=== PATIENT | female | born 1980 | race Two or more races ===

== ENCOUNTER 2016-11-28 08:15 | Inpatient (IN) | payer SELFPAY ==
[~2016-11-28] VITALS: Ht 154.9 cm; Wt 103.0 kg
[2016-11-28] MEDS ORDERED: CARBOPROST TROMETHAMINE 250 MCG/1ML VIAL IM PRN (08:45)
[2016-11-28] MEDS ORDERED: DERMOPLAST 60ML BOTTLE TOP PRN (08:45)
[2016-11-28] MEDS ORDERED: WITCH HAZEL-GLYCERIN PAD TOP PRN (08:45)
[2016-11-28] MEDS ORDERED: NALBUPHINE HCL 10 MG/1ml INJECTION IV PRN (08:45)
[2016-11-28] MEDS ORDERED: LIDOCAINE 2%HCL (LOCAL ANESTH.) INJ 20ML MDV IJ ONE (08:45)
[2016-11-28] MEDS ORDERED: METHYLERGONOVINE MALEATE 0.2 MG/ML AMP IM PRN (08:45)
[2016-11-28] MEDS ORDERED: CLINDAMYCIN 900MG IV 50 ML IV SCH (09:00)
[2016-11-28] MEDS ORDERED: LACT. RINGERS/OXYTOCIN 20UNITS 1,000 ML IV SCH (09:09)
[2016-11-28 09:29] LABS: Basophils # (auto) 0.1 uL; Basophils % (auto) 1.2 % (0.0-2.0); Eosinophils # (auto) 0.1 uL; Eosinophils % (auto) 1.4 % (0.0-7.0); Hemoglobin 11.9 g/dL (12.2-16.2); Lymphocytes % (auto) 22.4 % (10.0-50.0); Mean Corpuscular Hemoglobin 30.4 pg (28.0-32.0); Mean Corpuscular Hgb Conc. 33.9 g/dL (32.0-36.0); Mean Corpuscular Volume 89.6 fL (80.0-100.0); Mean Platelet Volume 9.5 fL (7.4-10.4); Monocytes # (auto) 0.5 uL; Monocytes % (auto) 5.5 % (0.0-12.0); Neutrophils # (auto) 6.2 uL; Neutrophils % (auto) 69.5 % (37.0-80.0); Platelet Count (auto) 241 10^3/uL (140-450); Red Cell Distribution Width 15.7 % (11.6-16.0); White Blood Cell 8.9 10^3/uL (4.4-10.8)
[2016-11-28 09:41] LABS: Urine Bilirubin Negative (Negative); Urine Color Yellow (Yellow); Urine Glucose Normal (Normal); Urine Ketone Negative (Negative); Urine Mucus FEW (None Seen); Urine Nitrite Negative (Negative); Urine RBC 38 /hpf (0 - 4); Urine Squamous Epithelial Cell MANY /hpf (<5); Urine Urobilinogen Normal (Negative); Urine WBC Clumps PRESENT /hpf (None Seen)
[2016-11-28 09:48] LABS: Urine Blood 3+ /uL (Negative)
[2016-11-28 09:48] LABS: INR 0.91 (0.9-1.15); Prothrombin Time 9.8 sec (9.37-12.3)
[2016-11-28 10:33] LABS: Albumin 2.8 g/dL (3.4-5.0); BUN/Creatinine Ratio 15.4; Bilirubin, Total 0.2 mg/dL (0.2-1.0); Calcium 8.5 mg/dL (8.5-10.1); Potassium 3.9 mmol/L (3.5-5.1); Total Protein 7.1 g/dL (6.4-8.2); Uric Acid 4.9 mg/dL (2.6-6.0)
[2016-11-28] MEDS ORDERED: LACT. RINGERS/OXYTOCIN 20UNITS 500 ML IV ONE (12:31)
[2016-11-28] MEDS ORDERED: ACETAMINOPHEN 325 MG TAB PO PRN (12:45)
[2016-11-28 15:38] VITALS: BP 128/66
[2016-11-28] MEDS: IBUPROFEN 600 MG TAB PO PRN ×2 (15:45→19:20)
[2016-11-28 19:13] VITALS: BP 129/61
[2016-11-28] MEDS: LACTATED RINGER'S 1,000 ML IV SCH ×2 (21:39→21:59)
[2016-11-29] VITALS (7 sets, daily range): BP systolic 116–145; BP diastolic 61–82
[2016-11-29] MEDS: IBUPROFEN 600 MG TAB PO PRN ×2 (00:54→13:40)
[2016-11-30 03:30] VITALS: BP 124/71
[2016-11-30 08:24] VITALS: BP 117/60
[2016-11-30 12:20] VITALS: BP 139/81
== END 2016-11-30 15:40 | disposition home or self-care (01) | DRG 775 ==
LOC: LDRP 08:15 → OBSVTOIN 08:15 → LDRP 08:15
PROVIDERS: ADMIT Obstetrics & Gynecology; ATTEND Obstetrics & Gynecology
PROC: 10E0XZZ Delivery of Products of Conception, External Approach (ICD-10-PCS; principal; 2016-11-28)
PROC: 0KQM0ZZ Repair Perineum Muscle, Open Approach (ICD-10-PCS; 2016-11-28)
PROC: 0UQMXZZ Repair Vulva, External Approach (ICD-10-PCS; 2016-11-28)
PROC: 10907ZC Drainage of Amniotic Fluid, Therapeutic from Products of Conception, Via Natural or Artificial Opening (ICD-10-PCS; 2016-11-28)
DX: O62.3 Precipitate labor (principal); O99.824 Streptococcus B carrier state complicating childbirth; O70.1 Second degree perineal laceration during delivery; O71.82 Other specified trauma to perineum and vulva; Z3A.39 39 weeks gestation of pregnancy; Z88.0 Allergy status to penicillin; Z37.0 Single live birth
CPT/HCPCS: 36415; 59025; 59409; 80053; 81001; 81002; 84550; 85025; 85610; 85730; 86592; 86850; 86900; 86901; 96365; 96366; G0434; J2590; J3490